=== PATIENT | female | born 1950 | race Caucasian/White ===

== ENCOUNTER → 2017-03-27 | Day surgery (SDC) | payer OTHER ==
[2017-03-21 07:50] VITALS: Ht 160 cm; Wt 51.8 kg
[~2017-03-27] VITALS: Ht 160 cm; Wt 51.8 kg
[~2017-03-27] MED LIST: ACETAMINOPHEN 325 MG TAB PO PRN; ALG PO; ASPI325T39 PO; ATROPINE SULFATE 0.1 MG/ML 5ML SYR IV PRN; ATROPINE SULFATE 1% OP SOLN 2 ML BTL ONE; BRIMONIDINE TART 0.2% OP SOLN PER DROP CHARGE ONE; BSS FLUSH ONE; EZET10TA63 PO; EpINEphrine INJ 1MG/ML AMP 1 MG/ML AMP ONE; LACTATED RINGER'S 1000ML 500 ML IV SCH; LIDOCAINE 3.5% OPH GEL PER APPLICATION CHARGE OPR SCH; LIDOCAINE 4% OP SOLN DROP CHARGE ONE; LIDOCAINE 4% OP SOLN DROP CHARGE OPR SCH; LIDOCAINE HCL 1% MPF 2 ML VIAL ONE; LISI-461 PO; MIDAZOLAM HCL 1 MG/ML 2ML VIAL ONE; MOXIFLOXACIN OPH SOLN PER DROP CHARGE ONE; POVIDONE-IODINE OP SOLN 30 ML BTL ONE; PROPARACAINE 0.5% OP SOLN PER DROP CHARGE OPR SCH; TOBRAMYCIN/DEXAMETHASONE OPH OINT PER APPLN CHARGE ONE; TRIATAB3 PO; ZOLP10TA PO; [UNRECOGNIZED DRUG - CODE] PO
--- NOTE | 2017-03-27 11:49 | History & Physical Bridge - [place] ---
H&P Re-Evaluation Bridge Note: I have examined the patient, reviewed the History & Physical and in the interval since the performance of the History & Physical I have noted the following changes of clinical significance: No changes noted
[2017-03-27] MEDS: MOXIFLOXACIN OPH SOLN PER DROP CHARGE OPR SCH ×3 (11:50→12:10)
--- NOTE | 2017-03-27 13:03 | Discharge Instructions-SurgCtr ---
Discharge Instructions Date of Service Mar 27, 2017. 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 Post Anesthesia Instructions: If you have had General Anesthesia or IV Sedation: * Do not drive today. * Resume driving when surgeon permits. * Do not make important decisions or sign legal documents today. * Call surgeon for: 1. Temperature elevations greater than 101 degrees F. 2. Uncontrollable pain. 3. Excessive bleeding. 4. Persistent nausea and vomiting. 5. Medication intolerance (nausea, vomiting or rash). * For nausea and vomiting use only clear liquids such as: tea, soda, bouillon until nausea subsides, then gradually increase diet as tolerated. * If you have any concerns or questions, call your surgeon's office. If physician is unavailable and it is an emergency, call 911 or go to the nearest emergency room. . Instructions / Follow-Up Instructions / Follow-Up ACTIVITY RECOMMENDATIONS: * Light activities * You may walk outside, read, watch television. * Mild irritation and blurred vision are common for the first few days, redness around the white part of the eye is common. MEDICATIONS: Resume previous medications unless instructed otherwise by your surgeon. Eye drops (today and tomorrow): Ofloxacin - one drop in operative eye every 2 hours while awake Prednisolone 1% - one drop in operative eye every 2 hours while awake SPECIAL CARE INSTRUCTIONS: * If any problems or concerns, please call Dr. Davenport's office at . FOLLOW UP VISIT: Follow-up with Dr. Davenport in the [place] office as scheduled. If not already scheduled, please call the office at . Diet Recommendations Home Diet: resume previous diet Procedures Procedures Performed: Right Eye Lamellar Keratectomy Pending Studies Studies pending at discharge: no Medical Emergencies . Who to Call and When: Medical Emergencies: If at any time you feel your situation is an emergency, please call 911 immediately. . Non-Emergent Contact Non-Emergency issues call your: Cafeteria Counter Attendant . . "Provider Documentation" section prepared by Goran Davenport. .
[2017-03-27 13:04] VITALS: TEMP 36.4
--- NOTE | 2017-03-27 13:08 | [facility] Operative Report ---
Operative Report Operative Date Mar 27, 2017. Pre-Operative Diagnosis David's Nodular Degeneration Right Eye Post-Operative Diagnosis Same Procedure(s) Performed Right Eye Lamellar Keratectomy Surgeon Dr. Davenport Polisher And Sander Surgeon(s) None Estimated Blood Loss 0 Findings david's nodular degeneration right eye Specimens None Drains none Anesthesia local with sedation Complication(s) None Disposition Recovery Room / PACU Implants none Indications decreased vision right eye Description of Procedure After informed consent was obtained in the holding area, the patient was wheeled back to the OR where cardiac monitoring leads and oxygen by nasal canula was administered by anesthesia. Gentle IV sedation was given and the right eye was prepped and draped in the usual sterile fashion. A wire lid speculum was placed in the eye and the operating microscope was brought into position. The david's nodules were reflected off the cornea using a pyramid [place] blade and 0.12 forceps between the 3 and 7 o'clock position of the cornea near the limbus. A bandage contact lens was then placed on the eye, the wire lid speculum was removed from the eye, a drop of vigamox and atropine 1% were placed on the eye. The patient was then taken to the recovery are in stable condition. I attest to the content of the Intraoperative Record and any orders documented therein. Any exceptions are noted below.
[2017-03-27 13:32] VITALS: BP 99/61; PULSE 52; O2SAT 100
--- NOTE | 2017-03-27 13:33 | Anesthesia Progress Nt - [facility] ---
Anesthesia Post Op Note Date & Time Mar 27, 2017 at 13:33 Vital Signs Pain Intensity: 0 Vital Signs Past 12 Hours Date Time Temp Pulse Resp B/P (MAP) Pulse Ox O2 Delivery O2 Flow Rate FiO2 03/27/17 13:04 36.4 58 16 107/62 (77) 100 Room Air 03/27/17 11:28 36.6 65 16 113/76 (88) 100 Room Air Notes Mental Status: alert / awake / arousable, participated in evaluation Pt Amnestic to Procedure: Yes Nausea / Vomiting: adequately controlled Pain: adequately controlled Airway Patency, RR, SpO2: stable & adequate BP & HR: stable & adequate Hydration State: stable & adequate Anesthetic Complications: no major complications apparent
== END | disposition home or self-care (01) ==
LOC: X.SURG 10:49
PROVIDERS: ATTEND Ophthalmology
DX: H18.451 Nodular corneal degeneration, right eye (principal); I10 Essential (primary) hypertension; E78.00 Pure hypercholesterolemia, unspecified; Z96.649 Presence of unspecified artificial hip joint